=== PATIENT | male | born 1945 | race Caucasian/White ===

== ENCOUNTER 2021-08-13 16:26 | Inpatient (IN) | payer OTHER ==
[2021-08-13 17:38] VITALS: BMI 32.1
[2021-08-13] MEDS ORDERED: P-EPHED 60MG/TRIPROLIDI 2.5MG TABLET PO PRN (20:24)
[2021-08-13] MEDS ORDERED: LOPERAMIDE HCL 2 MG CAPSULE PO PRN (20:24)
[2021-08-13] MEDS ORDERED: MAG HYDROX/AL HYDROX/SIMETH 30 ML UNIT-DOSE CUP PO PRN (20:24)
[2021-08-13] MEDS ORDERED: ACETAMINOPHEN 325 MG TABLET (FP) PO PRN (20:24)
[2021-08-13] MEDS ORDERED: guaiFENesin 200 MG/10 ML 10 ML UNIT-DOSE CUPS PO PRN (20:24)
[2021-08-13] MEDS ORDERED: MAGNESIUM HYDROX 2400MG/30ML ORAL SUSPENSION 30 ML CUP PO PRN (20:24)
[2021-08-13] MEDS ORDERED: MAGNESIUM CITRATE 300 ML BOTTLE PO PRN (20:24)
[2021-08-13] MEDS ORDERED: NICOTINE POLACRILEX 2 MG GUM BC PRN (20:24)
[2021-08-13] MEDS ORDERED: THIAMINE HCL 100 MG TABLET (FP) PO SCH (22:00)
[2021-08-13] MEDS ORDERED: MELATONIN 5 MG TABLETS PO SCH (22:00)
[2021-08-14] MEDS: IBUPROFEN 400 MG TABLET (FP) PO PRN ×2 (05:44→17:59)
[2021-08-14] MEDS ORDERED: methaDONE HCL 10 MG TABLET PO ONE (09:45)
[2021-08-14] MEDS ORDERED: PRENATAL VITAMINS W/ FOLIC ACID TABLET (FP) PO SCH (10:00)
[2021-08-14] MEDS ORDERED: NICOTINE 14 MG/24 HOURS TOPICAL PATCH TD SCH (10:00)
[2021-08-14] MEDS ORDERED: cloNIDine HCL 0.1 MG TABLET PO PRN (10:16)
[2021-08-14] MEDS ORDERED: ALBUTEROL SO4 0.083% IH SOL 2.5 MG/3 ML VIAL.NEB. NEB PRN (10:20)
[2021-08-14] MEDS ORDERED: ALBUTEROL SO4 HFA INHALER IH PRN (10:20)
[2021-08-14] MEDS ORDERED: methaDONE HCL 10 MG TABLET ONE (10:24)
[2021-08-14] MEDS ORDERED: methaDONE HCL 40 MG DISPERSABLE TABLET ONE (10:25)
[2021-08-14] MEDS ORDERED: LISINOPRIL 10 MG TABLET PO SCH (10:30)
[2021-08-14] MEDS ORDERED: amLODIPine BESYLATE 5 MG TABLET (FP) PO SCH (10:30)
[2021-08-14] MEDS ORDERED: HYDROCHLOROTHIAZIDE 25 MG TABLET (FP) PO SCH (10:30)
[2021-08-14] MEDS ORDERED: LORATADINE 10 MG TABLET PO SCH (10:30)
[2021-08-14] MEDS ORDERED: BUDESONIDE/FORMETEROL FUMARATE 160/4.5 mcg INHALER IH SCH (10:30)
[2021-08-14 11:10] LABS: HEMATOCRIT 39.5 % (35.4-49); HEMOGLOBIN 13.7 GM/dL (11.7-16.9); MCH 30.9 pg (25.7-33.7); MCHC 34.7 g/dl (32.0-35.9); MEAN CELL VOLUME 89.2 fl (80-96); MEAN PLT VOLUME 9.1 fl (7.5-11.1); PLATELET COUNT 186 10^3/uL (134-434); RBC 4.43 M/mm3 (4.00-5.60); RDW 13.4 % (11.9-15.9); WHITE BLOOD COUNT 6.3 K/mm3 (4.0-10.0)
[2021-08-14 11:19] LABS: ALBUMIN 4.2 g/dl (3.4-5.0); BLOOD UREA NITROGEN 14.6 mg/dL (7-18)
[2021-08-14 11:22] LABS: CREATININE 0.6 mg/dL (0.55-1.3)
[2021-08-14 11:24] LABS: BILIRUBIN,TOTAL 0.6 mg/dL (0.2-1); TOT PROT 6.8 g/dl (6.4-8.2)
[2021-08-14 11:50] LABS: SYPHILIS W/ RPR CONF NON-REACTIVE (NONREACTIVE)
[2021-08-14 17:59] VITALS: BP 125/62; PULSE 66; TEMP 98
[2021-08-15] MEDS ORDERED: methaDONE HCL 10 MG TABLET PO SCH (06:00)
== END 2021-08-14 18:06 | disposition other institution (70) | DRG 897 ==
LOC: YASAS 16:26 → Y6N 23:27
PROVIDERS: ADMIT Allergy & Immunology; ATTEND Allergy & Immunology
PROC: HZ2ZZZZ Detoxification Services for Substance Abuse Treatment (ICD-10-PCS; principal; 2021-08-13)
DX: F11.20 Opioid dependence, uncomplicated (principal); F14.20 Cocaine dependence, uncomplicated; F17.210 Nicotine dependence, cigarettes, uncomplicated; F32.A Depression, unspecified; I10 Essential (primary) hypertension; J43.9 Emphysema, unspecified; J30.2 Other seasonal allergic rhinitis; M17.12 Unilateral primary osteoarthritis, left knee; Z99.89 Dependence on other enabling machines and devices
CPT/HCPCS: 36415; 80053; 85027; 86780; 86803; 93005; 93010; C9803-CS; U0003; U0005

== ENCOUNTER 2021-08-14 18:22 | Inpatient (IN) | payer OTHER ==
[2021-08-14] MEDS ORDERED: MAGNESIUM CITRATE 300 ML BOTTLE PO PRN (22:03)
[2021-08-14] MEDS ORDERED: P-EPHED 60MG/TRIPROLIDI 2.5MG TABLET PO PRN (22:03)
[2021-08-14] MEDS ORDERED: LOPERAMIDE HCL 2 MG CAPSULE PO PRN (22:03)
[2021-08-14] MEDS ORDERED: MELATONIN 5 MG TABLETS PO PRN (22:03)
[2021-08-14] MEDS ORDERED: guaiFENesin 200 MG/10 ML 10 ML UNIT-DOSE CUPS PO PRN (22:03)
[2021-08-14] MEDS ORDERED: MENTHOL/PHENOL 1 EACH UD MM PRN (22:03)
[2021-08-14] MEDS ORDERED: MAGNESIUM HYDROX 2400MG/30ML ORAL SUSPENSION 30 ML CUP PO PRN (22:03)
[2021-08-15] MEDS ORDERED: methaDONE HCL 40 MG DISPERSABLE TABLET PO SCH (06:00)
[2021-08-15] MEDS ORDERED: methaDONE HCL 10 MG TABLET ONE (06:13)
[2021-08-15] MEDS ORDERED: methaDONE HCL 40 MG DISPERSABLE TABLET ONE (06:13)
[2021-08-15] MEDS: ACETAMINOPHEN 325 MG TABLET (FP) PO PRN (06:17)
[2021-08-15] MEDS: PRENATAL VITAMINS W/ FOLIC ACID TABLET (FP) PO SCH (10:16)
[2021-08-15] MEDS: IBUPROFEN 400 MG TABLET (FP) PO PRN ×2 (10:16→17:21)
[2021-08-15] MEDS ORDERED: NALOXONE (NARCAN) HCL 4 MG/0.1 ML SPRAY NS PRN (11:09)
[2021-08-15] MEDS: LIDOCAINE 5% TOPICAL PATCH TP SCH (12:10)
[2021-08-15] MEDS: HYDROCHLOROTHIAZIDE 25 MG TABLET (FP) PO SCH (12:10)
[2021-08-15] MEDS: THIAMINE HCL 100 MG TABLET (FP) PO SCH (21:29)
[2021-08-15] MEDS: MIRTAZAPINE 15 MG TABLET (FP) PO SCH (21:30)
[2021-08-15] MEDS: LIDOCAINE PATCH REMOVAL MC SCH (21:30)
[2021-08-15] MEDS: MAG HYDROX/AL HYDROX/SIMETH 30 ML UNIT-DOSE CUP PO PRN (21:40)
[2021-08-16] MEDS ORDERED: methaDONE HCL 10 MG TABLET ONE (03:20)
[2021-08-16] MEDS ORDERED: methaDONE HCL 40 MG DISPERSABLE TABLET ONE (03:20)
[2021-08-16] MEDS: PRENATAL VITAMINS W/ FOLIC ACID TABLET (FP) PO SCH (09:05)
[2021-08-16] MEDS: LIDOCAINE 5% TOPICAL PATCH TP SCH (09:05)
[2021-08-16] MEDS: HYDROCHLOROTHIAZIDE 25 MG TABLET (FP) PO SCH (09:05)
[2021-08-16] MEDS ORDERED: ALBUTEROL SO4 HFA INHALER IH PRN (11:20)
[2021-08-16] MEDS: LORATADINE 10 MG TABLET PO SCH (12:43)
[2021-08-16] MEDS: amLODIPine BESYLATE 5 MG TABLET (FP) PO SCH (12:44)
[2021-08-16] MEDS: LISINOPRIL 10 MG TABLET PO SCH ×2 (12:44→21:18)
[2021-08-16] MEDS: THIAMINE HCL 100 MG TABLET (FP) PO SCH (21:19)
[2021-08-16] MEDS: LIDOCAINE PATCH REMOVAL MC SCH (21:19)
[2021-08-16] MEDS: BUDESONIDE/FORMETEROL FUMARATE 160/4.5 mcg INHALER IH SCH (21:19)
[2021-08-16] MEDS: METHYL SALICYLATE/MENTHOL OINT 30 GM TUBE TP SCH (21:19)
[2021-08-16] MEDS: MIRTAZAPINE 15 MG TABLET (FP) PO SCH (21:19)
[2021-08-16] MEDS: IBUPROFEN 400 MG TABLET (FP) PO PRN (21:20)
[2021-08-17] MEDS ORDERED: methaDONE HCL 10 MG TABLET ONE (03:16)
[2021-08-17] MEDS ORDERED: methaDONE HCL 40 MG DISPERSABLE TABLET ONE (03:16)
[2021-08-17] MEDS: LORATADINE 10 MG TABLET PO SCH (09:18)
[2021-08-17] MEDS: LISINOPRIL 10 MG TABLET PO SCH ×2 (09:19→21:13)
[2021-08-17] MEDS: PRENATAL VITAMINS W/ FOLIC ACID TABLET (FP) PO SCH (09:19)
[2021-08-17] MEDS: HYDROCHLOROTHIAZIDE 25 MG TABLET (FP) PO SCH (09:19)
[2021-08-17] MEDS: BUDESONIDE/FORMETEROL FUMARATE 160/4.5 mcg INHALER IH SCH ×2 (09:19→21:13)
[2021-08-17] MEDS: amLODIPine BESYLATE 5 MG TABLET (FP) PO SCH (09:19)
[2021-08-17] MEDS: LIDOCAINE 5% TOPICAL PATCH TP SCH (09:20)
[2021-08-17] MEDS: NICOTINE 21 MG/24 HOURS TOPICAL PATCH TD SCH (11:00)
[2021-08-17] MEDS ORDERED: NICOTINE POLACRILEX 2 MG GUM BUC PRN (12:03)
[2021-08-17] MEDS ORDERED: NICOTINE 10 MG CARTRIDGE (INHALER) IH PRN (12:10)
[2021-08-17] MEDS ORDERED: ONDANSETRON *ODT* 4 MG TABLET SL PRN (16:51)
[2021-08-17] MEDS: METHYL SALICYLATE/MENTHOL OINT 30 GM TUBE TP SCH (21:12)
[2021-08-17] MEDS: THIAMINE HCL 100 MG TABLET (FP) PO SCH (21:12)
[2021-08-17] MEDS: MIRTAZAPINE 15 MG TABLET (FP) PO SCH (21:13)
[2021-08-17] MEDS: LIDOCAINE PATCH REMOVAL MC SCH (21:13)
[2021-08-18] MEDS ORDERED: methaDONE HCL 10 MG TABLET ONE (03:18)
[2021-08-18] MEDS ORDERED: methaDONE HCL 40 MG DISPERSABLE TABLET ONE (03:18)
[2021-08-18] MEDS: ACETAMINOPHEN 325 MG TABLET (FP) PO PRN (06:33)
[2021-08-18] MEDS: NICOTINE 21 MG/24 HOURS TOPICAL PATCH TD SCH (10:10)
[2021-08-18] MEDS: LIDOCAINE 5% TOPICAL PATCH TP SCH (10:10)
[2021-08-18] MEDS: amLODIPine BESYLATE 5 MG TABLET (FP) PO SCH (10:11)
[2021-08-18] MEDS: LISINOPRIL 10 MG TABLET PO SCH ×2 (10:11→21:33)
[2021-08-18] MEDS: HYDROCHLOROTHIAZIDE 25 MG TABLET (FP) PO SCH (10:11)
[2021-08-18] MEDS: LORATADINE 10 MG TABLET PO SCH (10:11)
[2021-08-18] MEDS: PRENATAL VITAMINS W/ FOLIC ACID TABLET (FP) PO SCH (10:12)
[2021-08-18] MEDS: BUDESONIDE/FORMETEROL FUMARATE 160/4.5 mcg INHALER IH SCH ×2 (10:12→21:34)
[2021-08-18] MEDS: THIAMINE HCL 100 MG TABLET (FP) PO SCH (21:33)
[2021-08-18] MEDS: MIRTAZAPINE 15 MG TABLET (FP) PO SCH (21:33)
[2021-08-18] MEDS: METHYL SALICYLATE/MENTHOL OINT 30 GM TUBE TP SCH (21:34)
[2021-08-18] MEDS: LIDOCAINE PATCH REMOVAL MC SCH (21:34)
[2021-08-19 00:07] LABS: SARS-CoV-2 NAA Not Detected (Not Detected)
[2021-08-19] MEDS ORDERED: methaDONE HCL 10 MG TABLET ONE (03:34)
[2021-08-19] MEDS ORDERED: methaDONE HCL 40 MG DISPERSABLE TABLET ONE (03:35)
[2021-08-19] MEDS: NICOTINE 21 MG/24 HOURS TOPICAL PATCH TD SCH (09:26)
[2021-08-19] MEDS: amLODIPine BESYLATE 5 MG TABLET (FP) PO SCH (09:27)
[2021-08-19] MEDS: LISINOPRIL 10 MG TABLET PO SCH ×2 (09:27→21:10)
[2021-08-19] MEDS: BUDESONIDE/FORMETEROL FUMARATE 160/4.5 mcg INHALER IH SCH ×2 (09:27→21:10)
[2021-08-19] MEDS: LORATADINE 10 MG TABLET PO SCH (09:27)
[2021-08-19] MEDS: HYDROCHLOROTHIAZIDE 25 MG TABLET (FP) PO SCH (09:27)
[2021-08-19] MEDS: PRENATAL VITAMINS W/ FOLIC ACID TABLET (FP) PO SCH (09:28)
[2021-08-19] MEDS: LIDOCAINE 5% TOPICAL PATCH TP SCH (09:28)
[2021-08-19] MEDS: MIRTAZAPINE 15 MG TABLET (FP) PO SCH (21:10)
[2021-08-19] MEDS: THIAMINE HCL 100 MG TABLET (FP) PO SCH (21:10)
[2021-08-19] MEDS: LIDOCAINE PATCH REMOVAL MC SCH (21:11)
[2021-08-19] MEDS: METHYL SALICYLATE/MENTHOL OINT 30 GM TUBE TP SCH (21:11)
[2021-08-20] MEDS ORDERED: methaDONE HCL 40 MG DISPERSABLE TABLET ONE (03:29)
[2021-08-20] MEDS ORDERED: methaDONE HCL 10 MG TABLET ONE (03:29)
[2021-08-20] MEDS: LORATADINE 10 MG TABLET PO SCH (09:36)
[2021-08-20] MEDS: NICOTINE 21 MG/24 HOURS TOPICAL PATCH TD SCH (09:36)
[2021-08-20] MEDS: HYDROCHLOROTHIAZIDE 25 MG TABLET (FP) PO SCH (09:36)
[2021-08-20] MEDS: LIDOCAINE 5% TOPICAL PATCH TP SCH (09:36)
[2021-08-20] MEDS: amLODIPine BESYLATE 5 MG TABLET (FP) PO SCH (09:37)
[2021-08-20] MEDS: PRENATAL VITAMINS W/ FOLIC ACID TABLET (FP) PO SCH (09:37)
[2021-08-20] MEDS: BUDESONIDE/FORMETEROL FUMARATE 160/4.5 mcg INHALER IH SCH ×2 (09:37→21:08)
[2021-08-20] MEDS: LISINOPRIL 10 MG TABLET PO SCH ×2 (09:37→21:07)
[2021-08-20] MEDS: THIAMINE HCL 100 MG TABLET (FP) PO SCH (21:07)
[2021-08-20] MEDS: METHYL SALICYLATE/MENTHOL OINT 30 GM TUBE TP SCH (21:08)
[2021-08-20] MEDS: MIRTAZAPINE 15 MG TABLET (FP) PO SCH (21:08)
[2021-08-20] MEDS: LIDOCAINE PATCH REMOVAL MC SCH (21:08)
[2021-08-21] MEDS ORDERED: methaDONE HCL 10 MG TABLET ONE (03:19)
[2021-08-21] MEDS ORDERED: methaDONE HCL 40 MG DISPERSABLE TABLET ONE (03:19)
[2021-08-21] MEDS: BUDESONIDE/FORMETEROL FUMARATE 160/4.5 mcg INHALER IH SCH ×2 (10:34→21:06)
[2021-08-21] MEDS: NICOTINE 21 MG/24 HOURS TOPICAL PATCH TD SCH (10:34)
[2021-08-21] MEDS: PRENATAL VITAMINS W/ FOLIC ACID TABLET (FP) PO SCH (10:35)
[2021-08-21] MEDS: HYDROCHLOROTHIAZIDE 25 MG TABLET (FP) PO SCH (10:35)
[2021-08-21] MEDS: LIDOCAINE 5% TOPICAL PATCH TP SCH (10:35)
[2021-08-21] MEDS: amLODIPine BESYLATE 5 MG TABLET (FP) PO SCH (10:35)
[2021-08-21] MEDS: LISINOPRIL 10 MG TABLET PO SCH ×2 (10:35→21:05)
[2021-08-21] MEDS: LORATADINE 10 MG TABLET PO SCH (10:36)
[2021-08-21] MEDS: ACETAMINOPHEN 325 MG TABLET (FP) PO PRN (14:41)
[2021-08-21] MEDS: MIRTAZAPINE 15 MG TABLET (FP) PO SCH (21:05)
[2021-08-21] MEDS: THIAMINE HCL 100 MG TABLET (FP) PO SCH (21:05)
[2021-08-21] MEDS: METHYL SALICYLATE/MENTHOL OINT 30 GM TUBE TP SCH (21:06)
[2021-08-21] MEDS: LIDOCAINE PATCH REMOVAL MC SCH (21:06)
[2021-08-22] MEDS ORDERED: methaDONE HCL 10 MG TABLET PO SCH (06:00)
[2021-08-22] MEDS ORDERED: methaDONE HCL 40 MG DISPERSABLE TABLET ONE (06:14)
[2021-08-22] MEDS ORDERED: methaDONE HCL 10 MG TABLET ONE (06:14)
[2021-08-22] MEDS: HYDROCHLOROTHIAZIDE 25 MG TABLET (FP) PO SCH (09:46)
[2021-08-22] MEDS: LORATADINE 10 MG TABLET PO SCH (09:46)
[2021-08-22] MEDS: LIDOCAINE 5% TOPICAL PATCH TP SCH (09:46)
[2021-08-22] MEDS: amLODIPine BESYLATE 5 MG TABLET (FP) PO SCH (09:47)
[2021-08-22] MEDS: NICOTINE 21 MG/24 HOURS TOPICAL PATCH TD SCH (09:47)
[2021-08-22] MEDS: BUDESONIDE/FORMETEROL FUMARATE 160/4.5 mcg INHALER IH SCH ×2 (09:48→21:31)
[2021-08-22] MEDS: PRENATAL VITAMINS W/ FOLIC ACID TABLET (FP) PO SCH (09:48)
[2021-08-22] MEDS: LISINOPRIL 10 MG TABLET PO SCH ×2 (09:48→21:30)
[2021-08-22] MEDS ORDERED: SIMETHICONE 80 MG TAB.CHEW (FP) PO PRN (10:32)
[2021-08-22] MEDS: DOCUSATE SODIUM 100 MG CAPSULE (FP) PO SCH (21:30)
[2021-08-22] MEDS: THIAMINE HCL 100 MG TABLET (FP) PO SCH (21:30)
[2021-08-22] MEDS: LIDOCAINE PATCH REMOVAL MC SCH (21:31)
[2021-08-22] MEDS: METHYL SALICYLATE/MENTHOL OINT 30 GM TUBE TP SCH (21:31)
[2021-08-22] MEDS: MIRTAZAPINE 15 MG TABLET (FP) PO SCH (21:31)
[2021-08-23] MEDS ORDERED: methaDONE HCL 10 MG TABLET ONE (05:29)
[2021-08-23] MEDS ORDERED: methaDONE HCL 40 MG DISPERSABLE TABLET ONE (05:30)
[2021-08-23] MEDS: LORATADINE 10 MG TABLET PO SCH (09:55)
[2021-08-23] MEDS: HYDROCHLOROTHIAZIDE 25 MG TABLET (FP) PO SCH (09:56)
[2021-08-23] MEDS: LIDOCAINE 5% TOPICAL PATCH TP SCH (09:56)
[2021-08-23] MEDS: NICOTINE 21 MG/24 HOURS TOPICAL PATCH TD SCH (09:56)
[2021-08-23] MEDS: amLODIPine BESYLATE 5 MG TABLET (FP) PO SCH (09:57)
[2021-08-23] MEDS: BUDESONIDE/FORMETEROL FUMARATE 160/4.5 mcg INHALER IH SCH ×2 (09:57→22:02)
[2021-08-23] MEDS: PRENATAL VITAMINS W/ FOLIC ACID TABLET (FP) PO SCH (09:57)
[2021-08-23] MEDS: LISINOPRIL 10 MG TABLET PO SCH ×2 (09:57→22:03)
[2021-08-23] MEDS: METHYL SALICYLATE/MENTHOL OINT 30 GM TUBE TP SCH (22:02)
[2021-08-23] MEDS: THIAMINE HCL 100 MG TABLET (FP) PO SCH (22:02)
[2021-08-23] MEDS: MIRTAZAPINE 15 MG TABLET (FP) PO SCH (22:03)
[2021-08-23] MEDS: DOCUSATE SODIUM 100 MG CAPSULE (FP) PO SCH (22:03)
[2021-08-23] MEDS: LIDOCAINE PATCH REMOVAL MC SCH (22:04)
[2021-08-24] MEDS ORDERED: methaDONE HCL 10 MG TABLET ONE (04:32)
[2021-08-24] MEDS ORDERED: methaDONE HCL 40 MG DISPERSABLE TABLET ONE (04:32)
[2021-08-24] MEDS: NICOTINE 21 MG/24 HOURS TOPICAL PATCH TD SCH (10:23)
[2021-08-24] MEDS: LIDOCAINE 5% TOPICAL PATCH TP SCH (10:23)
[2021-08-24] MEDS: LORATADINE 10 MG TABLET PO SCH (10:24)
[2021-08-24] MEDS: HYDROCHLOROTHIAZIDE 25 MG TABLET (FP) PO SCH (10:24)
[2021-08-24] MEDS: LISINOPRIL 10 MG TABLET PO SCH ×2 (10:24→21:40)
[2021-08-24] MEDS: amLODIPine BESYLATE 5 MG TABLET (FP) PO SCH (10:25)
[2021-08-24] MEDS: BUDESONIDE/FORMETEROL FUMARATE 160/4.5 mcg INHALER IH SCH ×2 (10:25→21:54)
[2021-08-24] MEDS: PRENATAL VITAMINS W/ FOLIC ACID TABLET (FP) PO SCH (10:25)
[2021-08-24] MEDS: THIAMINE HCL 100 MG TABLET (FP) PO SCH (21:40)
[2021-08-24] MEDS: ACETAMINOPHEN 325 MG TABLET (FP) PO PRN (21:40)
[2021-08-24] MEDS: DOCUSATE SODIUM 100 MG CAPSULE (FP) PO SCH (21:40)
[2021-08-24] MEDS: MIRTAZAPINE 15 MG TABLET (FP) PO SCH (21:40)
[2021-08-24] MEDS: METHYL SALICYLATE/MENTHOL OINT 30 GM TUBE TP SCH (21:43)
[2021-08-24] MEDS: LIDOCAINE PATCH REMOVAL MC SCH (21:53)
[2021-08-25] MEDS ORDERED: methaDONE HCL 10 MG TABLET ONE (05:23)
[2021-08-25] MEDS ORDERED: methaDONE HCL 40 MG DISPERSABLE TABLET ONE (05:23)
[2021-08-25] MEDS: BUDESONIDE/FORMETEROL FUMARATE 160/4.5 mcg INHALER IH SCH ×2 (10:24→21:36)
[2021-08-25] MEDS: LISINOPRIL 10 MG TABLET PO SCH ×2 (10:24→21:34)
[2021-08-25] MEDS: LORATADINE 10 MG TABLET PO SCH (10:24)
[2021-08-25] MEDS: amLODIPine BESYLATE 5 MG TABLET (FP) PO SCH (10:24)
[2021-08-25] MEDS: PRENATAL VITAMINS W/ FOLIC ACID TABLET (FP) PO SCH (10:24)
[2021-08-25] MEDS: HYDROCHLOROTHIAZIDE 25 MG TABLET (FP) PO SCH (10:24)
[2021-08-25] MEDS: LIDOCAINE 5% TOPICAL PATCH TP SCH (10:26)
[2021-08-25] MEDS: NICOTINE 21 MG/24 HOURS TOPICAL PATCH TD SCH (10:26)
[2021-08-25] MEDS: MAG HYDROX/AL HYDROX/SIMETH 30 ML UNIT-DOSE CUP PO PRN (18:37)
[2021-08-25] MEDS: THIAMINE HCL 100 MG TABLET (FP) PO SCH (21:34)
[2021-08-25] MEDS: MIRTAZAPINE 15 MG TABLET (FP) PO SCH (21:34)
[2021-08-25] MEDS: DOCUSATE SODIUM 100 MG CAPSULE (FP) PO SCH (21:34)
[2021-08-25] MEDS: METHYL SALICYLATE/MENTHOL OINT 30 GM TUBE TP SCH (21:36)
[2021-08-25] MEDS: LIDOCAINE PATCH REMOVAL MC SCH (21:36)
[2021-08-26] MEDS ORDERED: methaDONE HCL 10 MG TABLET ONE (03:41)
[2021-08-26] MEDS ORDERED: methaDONE HCL 40 MG DISPERSABLE TABLET ONE (03:41)
[2021-08-26] MEDS: HYDROCHLOROTHIAZIDE 25 MG TABLET (FP) PO SCH (09:35)
[2021-08-26] MEDS: LORATADINE 10 MG TABLET PO SCH (09:35)
[2021-08-26] MEDS: LIDOCAINE 5% TOPICAL PATCH TP SCH (09:35)
[2021-08-26] MEDS: amLODIPine BESYLATE 5 MG TABLET (FP) PO SCH (09:36)
[2021-08-26] MEDS: NICOTINE 21 MG/24 HOURS TOPICAL PATCH TD SCH (09:36)
[2021-08-26] MEDS: BUDESONIDE/FORMETEROL FUMARATE 160/4.5 mcg INHALER IH SCH ×2 (09:37→21:26)
[2021-08-26] MEDS: PRENATAL VITAMINS W/ FOLIC ACID TABLET (FP) PO SCH (09:37)
[2021-08-26] MEDS: LISINOPRIL 10 MG TABLET PO SCH ×2 (09:37→21:23)
[2021-08-26] MEDS: THIAMINE HCL 100 MG TABLET (FP) PO SCH (21:23)
[2021-08-26] MEDS: ACETAMINOPHEN 325 MG TABLET (FP) PO PRN (21:25)
[2021-08-26] MEDS: LIDOCAINE PATCH REMOVAL MC SCH (21:25)
[2021-08-26] MEDS: METHYL SALICYLATE/MENTHOL OINT 30 GM TUBE TP SCH (21:25)
[2021-08-26] MEDS: DOCUSATE SODIUM 100 MG CAPSULE (FP) PO SCH (21:25)
[2021-08-26] MEDS: MIRTAZAPINE 15 MG TABLET (FP) PO SCH (21:26)
[2021-08-27] MEDS ORDERED: methaDONE HCL 10 MG TABLET ONE (03:30)
[2021-08-27] MEDS ORDERED: methaDONE HCL 40 MG DISPERSABLE TABLET ONE (03:30)
[2021-08-27] MEDS: HYDROCHLOROTHIAZIDE 25 MG TABLET (FP) PO SCH (10:24)
[2021-08-27] MEDS: amLODIPine BESYLATE 5 MG TABLET (FP) PO SCH (10:24)
[2021-08-27] MEDS: LISINOPRIL 10 MG TABLET PO SCH ×2 (10:24→21:40)
[2021-08-27] MEDS: PRENATAL VITAMINS W/ FOLIC ACID TABLET (FP) PO SCH (10:24)
[2021-08-27] MEDS: BUDESONIDE/FORMETEROL FUMARATE 160/4.5 mcg INHALER IH SCH ×2 (10:24→21:43)
[2021-08-27] MEDS: LORATADINE 10 MG TABLET PO SCH (10:24)
[2021-08-27] MEDS: NICOTINE 21 MG/24 HOURS TOPICAL PATCH TD SCH (10:25)
[2021-08-27] MEDS: LIDOCAINE 5% TOPICAL PATCH TP SCH (10:26)
[2021-08-27] MEDS: ACETAMINOPHEN 325 MG TABLET (FP) PO PRN (17:53)
[2021-08-27] MEDS: DOCUSATE SODIUM 100 MG CAPSULE (FP) PO SCH (21:40)
[2021-08-27] MEDS: METHYL SALICYLATE/MENTHOL OINT 30 GM TUBE TP SCH (21:40)
[2021-08-27] MEDS: THIAMINE HCL 100 MG TABLET (FP) PO SCH (21:40)
[2021-08-27] MEDS: MIRTAZAPINE 15 MG TABLET (FP) PO SCH (21:40)
[2021-08-27] MEDS: LIDOCAINE PATCH REMOVAL MC SCH (21:43)
[2021-08-28] MEDS ORDERED: methaDONE HCL 40 MG DISPERSABLE TABLET ONE (04:04)
[2021-08-28] MEDS ORDERED: methaDONE HCL 10 MG TABLET ONE (04:04)
[2021-08-28] MEDS: NICOTINE 21 MG/24 HOURS TOPICAL PATCH TD SCH (09:49)
[2021-08-28] MEDS: PRENATAL VITAMINS W/ FOLIC ACID TABLET (FP) PO SCH (09:49)
[2021-08-28] MEDS: HYDROCHLOROTHIAZIDE 25 MG TABLET (FP) PO SCH (09:49)
[2021-08-28] MEDS: LISINOPRIL 10 MG TABLET PO SCH ×2 (09:49→21:13)
[2021-08-28] MEDS: amLODIPine BESYLATE 5 MG TABLET (FP) PO SCH (09:49)
[2021-08-28] MEDS: BUDESONIDE/FORMETEROL FUMARATE 160/4.5 mcg INHALER IH SCH ×2 (09:49→21:12)
[2021-08-28] MEDS: LIDOCAINE 5% TOPICAL PATCH TP SCH (09:50)
[2021-08-28] MEDS: LORATADINE 10 MG TABLET PO SCH (09:51)
[2021-08-28] MEDS: MIRTAZAPINE 15 MG TABLET (FP) PO SCH (21:11)
[2021-08-28] MEDS: METHYL SALICYLATE/MENTHOL OINT 30 GM TUBE TP SCH (21:12)
[2021-08-28] MEDS: DOCUSATE SODIUM 100 MG CAPSULE (FP) PO SCH (21:12)
[2021-08-28] MEDS: LIDOCAINE PATCH REMOVAL MC SCH (21:12)
[2021-08-28] MEDS: THIAMINE HCL 100 MG TABLET (FP) PO SCH (23:12)
[2021-08-29] MEDS ORDERED: methaDONE HCL 10 MG TABLET ONE (03:27)
[2021-08-29] MEDS ORDERED: methaDONE HCL 40 MG DISPERSABLE TABLET ONE (03:27)
[2021-08-29] MEDS: LORATADINE 10 MG TABLET PO SCH (09:28)
[2021-08-29] MEDS: HYDROCHLOROTHIAZIDE 25 MG TABLET (FP) PO SCH (09:28)
[2021-08-29] MEDS: LIDOCAINE 5% TOPICAL PATCH TP SCH (09:28)
[2021-08-29] MEDS: BUDESONIDE/FORMETEROL FUMARATE 160/4.5 mcg INHALER IH SCH ×2 (09:29→21:05)
[2021-08-29] MEDS: LISINOPRIL 10 MG TABLET PO SCH ×2 (09:29→21:04)
[2021-08-29] MEDS: NICOTINE 21 MG/24 HOURS TOPICAL PATCH TD SCH (09:29)
[2021-08-29] MEDS: amLODIPine BESYLATE 5 MG TABLET (FP) PO SCH (09:29)
[2021-08-29] MEDS: PRENATAL VITAMINS W/ FOLIC ACID TABLET (FP) PO SCH (09:29)
[2021-08-29] MEDS: THIAMINE HCL 100 MG TABLET (FP) PO SCH (21:03)
[2021-08-29] MEDS: DOCUSATE SODIUM 100 MG CAPSULE (FP) PO SCH (21:04)
[2021-08-29] MEDS: METHYL SALICYLATE/MENTHOL OINT 30 GM TUBE TP SCH (21:05)
[2021-08-29] MEDS: MIRTAZAPINE 15 MG TABLET (FP) PO SCH (21:05)
[2021-08-29] MEDS: LIDOCAINE PATCH REMOVAL MC SCH (21:05)
[2021-08-30] MEDS ORDERED: methaDONE HCL 40 MG DISPERSABLE TABLET ONE (03:08)
[2021-08-30] MEDS ORDERED: methaDONE HCL 10 MG TABLET ONE (03:08)
[2021-08-30 06:49] VITALS: TEMP 96.9
[2021-08-30 09:11] VITALS: BP 145/75; PULSE 79
[2021-08-30] MEDS: LIDOCAINE 5% TOPICAL PATCH TP SCH (09:20)
[2021-08-30] MEDS: BUDESONIDE/FORMETEROL FUMARATE 160/4.5 mcg INHALER IH SCH (09:20)
[2021-08-30] MEDS: amLODIPine BESYLATE 5 MG TABLET (FP) PO SCH (09:21)
[2021-08-30] MEDS: HYDROCHLOROTHIAZIDE 25 MG TABLET (FP) PO SCH (09:21)
[2021-08-30] MEDS: PRENATAL VITAMINS W/ FOLIC ACID TABLET (FP) PO SCH (09:21)
[2021-08-30] MEDS: LORATADINE 10 MG TABLET PO SCH (09:21)
[2021-08-30] MEDS: NICOTINE 21 MG/24 HOURS TOPICAL PATCH TD SCH (09:21)
[2021-08-30] MEDS: LISINOPRIL 10 MG TABLET PO SCH (09:21)
== END 2021-08-30 13:46 | disposition home or self-care (01) | DRG 895 ==
LOC: YASAS 18:22 → Y3E 18:23
PROVIDERS: ADMIT Allergy & Immunology; ATTEND Allergy & Immunology
PROC: HZ42ZZZ Group Counseling for Substance Abuse Treatment, Cognitive-Behavioral (ICD-10-PCS; principal; 2021-08-24)
DX: F11.20 Opioid dependence, uncomplicated (principal); F14.20 Cocaine dependence, uncomplicated; F19.282 Other psychoactive substance dependence with psychoactive substance-induced sleep disorder; F19.280 Other psychoactive substance dependence with psychoactive substance-induced anxiety disorder; F17.210 Nicotine dependence, cigarettes, uncomplicated; F20.9 Schizophrenia, unspecified; F19.24 Other psychoactive substance dependence with psychoactive substance-induced mood disorder; I10 Essential (primary) hypertension; J44.9 Chronic obstructive pulmonary disease, unspecified; J30.2 Other seasonal allergic rhinitis; M17.12 Unilateral primary osteoarthritis, left knee; Z62.810 Personal history of physical and sexual abuse in childhood
CPT/HCPCS: 82962; C9803-CS; Q0162; U0003; U0005